=== PATIENT | female | born 1990 | race Two or more races ===

== ENCOUNTER 2022-11-13 08:53 | Outpatient (CLI) | payer OTHER | END 2022-11-13 10:15 | disposition home or self-care (01) | LOC: PRENATAL 08:53 | PROVIDERS: ATTEND Obstetrics & Gynecology Maternal & Fetal Medicine | DX: Z76.1 Encounter for health supervision and care of foundling (principal) ==

== ENCOUNTER 2024-06-28 14:03 | Emergency (ER) | payer OTHER ==
[~2024-06-28] VITALS: Ht 160 cm; Wt 81.6 kg
[2024-06-28] MEDS ORDERED: FAMOtidine 10 MG/ML (4ML VIAL) IV PUSH ONE (15:00)
[2024-06-28] MEDS ORDERED: PROMETHAZINE HCL 50 MG/ML AMPUL IM ONE ×2 (15:00→16:04)
[2024-06-28] MEDS ORDERED: ONDANSETRON HCL 2 MG/ML VIAL IM ONE (15:00)
[2024-06-28] MEDS ORDERED: FAMOTIDINE/PF 20 MG/2 ML VIAL ONE (16:04)
[2024-06-28 16:24] LABS: HEMATOCRIT 41.9 % (36.0-45.00); HEMOGLOBIN 13.9 g/dL (12.0-15.00); MEAN CELL VOLUME 83.2 fL (80.00-100.00); MEAN CORPUSCULAR HEMOGLOBIN 27.6 pg (27.00-32.0); MEAN CORPUSCULAR HGB CONC 33.2 g/dl (32.0-36.0); PLATELET COUNT 377 K/uL (150-450); RED BLOOD COUNT 5.04 M/uL (4.00-6.00); RED CELL DISTRIBUTION WIDTH 13.4 % (11.5-14.5)
[2024-06-28 17:09] LABS: ALBUMIN 4.2 gm/dL (3.4-5.0); ALKALINE PHOSPHATASE 92 U/L (50-136); ALT/SGPT 25 U/L (12-78); ANION GAP 8 (10.0-20.0); AST/SGOT 18 U/L (15-37); BLOOD UREA NITROGEN 9 mg/dL (7-18); BUN CREA RATIO 14 (7.0-25.0); CALCIUM 10.2 mg/dL (8.5-10.1); CARBON DIOXIDE 30 mEq/L (21-32); CHLORIDE 107 mmol/L (98-107); CREATININE SERUM 0.63 mg/dL (0.55-1.02); GFR 108.83; GLUCOSE FASTING 94 mg/dL (65-100); OSMOLALITY SERUM 280 MOSM/KG (275-295); POTASSIUM 3.92 mEq/L (3.5-5.1); SODIUM 141 mmol/L (136-145); TOTAL PROTEIN 8.2 gm/dL (6.4-8.2)
[2024-06-28 17:33] LABS: HCG QUANTITATIVE < 1 mUI/mL (1-3)
== END 2024-06-28 19:12 | disposition home or self-care (01) ==
LOC: ER 14:05
PROVIDERS: General Practice
DX: K52.9 Noninfective gastroenteritis and colitis, unspecified (principal); J00 Acute nasopharyngitis [common cold]; Z20.822 Contact with and (suspected) exposure to COVID-19; M79.7 Fibromyalgia; Z88.8 Allergy status to other drugs, medicaments and biological substances

== ENCOUNTER 2024-08-04 11:18 | Emergency (ER) | payer OTHER ==
[~2024-08-04] VITALS: Ht 160 cm; Wt 83.9 kg
[2024-08-04] MEDS ORDERED: FAMOTIDINE/PF 20 MG/2 ML VIAL IV PUSH STA (14:30)
[2024-08-04] MEDS ORDERED: ONDANSETRON HCL 2 MG/ML VIAL IV STA (14:30)
[2024-08-04] MEDS ORDERED: LACTOBACILLUS ACIDOPHILUS 1 CAP CAP PO STA (14:31)
[2024-08-04 15:11] LABS: HEMATOCRIT 42.7 % (36.0-45.00); HEMOGLOBIN 14.1 g/dL (12.0-15.00); MEAN CELL VOLUME 83.5 fL (80.00-100.00); MEAN CORPUSCULAR HEMOGLOBIN 27.6 pg (27.00-32.0); PLATELET COUNT 403 K/uL (150-450); RED BLOOD COUNT 5.12 M/uL (4.00-6.00); RED CELL DISTRIBUTION WIDTH 13.8 % (11.5-14.5)
[2024-08-04 15:48] LABS: BILIRUBIN TOTAL 0.34 mg/dL (0.3-1.2); CALCIUM 9.6 mg/dL (8.5-10.1); CREATININE SERUM 0.74 mg/dL (0.55-1.02); GFR 90.38; GLOBULINA 4.6 G/DL (2.4-3.5); POTASSIUM 3.8 mEq/L (3.5-5.1); TOTAL PROTEIN 8.6 gm/dL (6.4-8.2)
== END 2024-08-04 18:09 | disposition home or self-care (01) ==
LOC: ER 11:21
DX: R19.7 Diarrhea, unspecified (principal); Z20.822 Contact with and (suspected) exposure to COVID-19; Z88.1 Allergy status to other antibiotic agents; Z88.6 Allergy status to analgesic agent